=== PATIENT | male | born 1960 | race Caucasian/White ===

== ENCOUNTER 2022-09-12 09:24 | Inpatient (IN) | payer OTHER ==
[2022-09-12] MEDS ORDERED: Ondansetron ODT 4 MG TAB PO PRN (09:50)
[2022-09-12 10:49] VITALS: BMI 27.8
[2022-09-12] MEDS ORDERED: Ventolin HFA Inhaler 60 PUFF INHALER INH PRN (10:51)
[2022-09-12] MEDS: Furosemide 40 MG/4 ML VIAL SLOW IVP SCH (13:12)
[2022-09-12 14:29] LABS: Troponin I 0.021 ng/mL (< 0.028)
[2022-09-12] MEDS: Carvedilol 6.25 MG TAB PO SCH (18:33)
[2022-09-12 20:26] LABS: Troponin I 0.024 ng/mL (< 0.028)
[2022-09-12] MEDS: hydrALAZINE 25 MG TAB PO SCH (21:08)
[2022-09-12] MEDS: Sodium Bicarbonate Tab 325 MG TAB PO SCH (21:08)
[2022-09-12] MEDS: Acetaminophen 325 MG TAB PO PRN (21:09)
[2022-09-13] MEDS: Acetaminophen 325 MG TAB PO PRN ×2 (01:03→20:56)
[2022-09-13] MEDS: Furosemide 40 MG/4 ML VIAL SLOW IVP SCH ×2 (05:11→14:53)
[2022-09-13] MEDS ORDERED: Levothyroxine Sodium 25 MCG TAB PO SCH (06:00)
[2022-09-13] MEDS ORDERED: Levothyroxine Sodium 88 MCG TAB PO SCH (06:00)
[2022-09-13 06:28] LABS: #Basophils 0.1 10x3/uL (0.0-0.2); #Eosinphils 0.3 10x3/uL (0.0-0.5); #Monocytes 0.6 10x3/uL (0.0-1.1); #Neutrophils 4.8 10x3/uL (1.5-8.4); %Basophils 1.8 % (0.0-2.0); %Eosinophils 3.4 % (0.0-6.0); %Lymphocytes 20.6 % (18.0-47.0); %Monocytes 8.6 % (0.0-10.0); %Neutrophils 65.2 % (40.0-75.0); Hemoglobin 10.6 g/dL (13.5-17.5); Mean Corpuscular HGB CONC 30.4 g/dL (32.0-36.0); Mean Corpuscular Hemoglobin 23.9 pg (27.0-33.0); Mean Corpuscular Volume 78.8 fl (81.2-95.1); Mean Platelet Volume 9.1 fl (7.4-10.4); Platelet Count 440 10x3/uL (150-450); RBC Distribution Width 16.3 % (11.5-14.5); Red Blood Cell (RBC) Count 4.43 10x6/uL (4.32-5.72); White Blood Cell (WBC) Count 7.4 10x3/uL (3.5-10.5)
[2022-09-13 06:40] LABS: Anion Gap 15 mmol/L (10-20); BUN (Urea Nitrogen) 34 mg/dL (8.4-25.7); Calc. Creatinine Clearance 60 mL/min (70-130); Calcium 8.8 mg/dL (7.8-10.44); Carbon Dioxide 22 mmol/L (23-31); Chloride 101 mmol/L (98-107); Estimated GFR 46; Glucose 80 mg/dL (80-115); Potassium 4.3 mmol/L (3.5-5.1); Sodium 134 mmol/L (136-145)
[2022-09-13] MEDS: hydrALAZINE 25 MG TAB PO SCH ×2 (08:53→20:55)
[2022-09-13] MEDS: Atorvastatin Calcium 40 MG TAB PO SCH (08:53)
[2022-09-13] MEDS: Sodium Bicarbonate Tab 325 MG TAB PO SCH ×2 (08:53→20:56)
[2022-09-13] MEDS: Lisinopril 10 MG TAB PO SCH (08:53)
[2022-09-13] MEDS: Carvedilol 6.25 MG TAB PO SCH ×2 (08:54→16:28)
[2022-09-13] MEDS: Loratadine 10 MG TAB PO SCH (08:54)
[2022-09-13] MEDS: Empagliflozin 10 MG TAB PO SCH (08:54)
[2022-09-13] MEDS: Clopidogrel Bisulfate 75 MG TAB PO SCH (08:54)
[2022-09-14] MEDS: Levothyroxine Sodium 50 MCG TAB PO SCH (05:22)
[2022-09-14] MEDS: Furosemide 40 MG/4 ML VIAL SLOW IVP SCH ×2 (05:22→15:53)
[2022-09-14 05:58] LABS: #Basophils 0.1 10x3/uL (0.0-0.2); #Eosinphils 0.3 10x3/uL (0.0-0.5); #Monocytes 0.8 10x3/uL (0.0-1.1); #Neutrophils 4.7 10x3/uL (1.5-8.4); %Basophils 1.7 % (0.0-2.0); %Eosinophils 3.6 % (0.0-6.0); %Lymphocytes 20.4 % (18.0-47.0); %Monocytes 10.8 % (0.0-10.0); Hemoglobin 10.5 g/dL (13.5-17.5); Mean Corpuscular HGB CONC 30.3 g/dL (32.0-36.0); Mean Corpuscular Volume 79.2 fl (81.2-95.1); Mean Platelet Volume 9.6 fl (7.4-10.4); Platelet Count 463 10x3/uL (150-450); RBC Distribution Width 16.3 % (11.5-14.5); Red Blood Cell (RBC) Count 4.37 10x6/uL (4.32-5.72); White Blood Cell (WBC) Count 7.5 10x3/uL (3.5-10.5)
[2022-09-14 06:11] LABS: Anion Gap 15 mmol/L (10-20); BUN (Urea Nitrogen) 40 mg/dL (8.4-25.7); Calc. Creatinine Clearance 57 mL/min (70-130); Calcium 8.9 mg/dL (7.8-10.44); Carbon Dioxide 25 mmol/L (23-31); Chloride 99 mmol/L (98-107); Estimated GFR 44; Glucose 78 mg/dL (80-115); Potassium 4.2 mmol/L (3.5-5.1); Sodium 135 mmol/L (136-145)
[2022-09-14] MEDS ORDERED: Senokot S 8.6-50 MG TAB PO SCH (09:00)
[2022-09-14] MEDS ORDERED: Magnesium Citrate 300 ML BOT PO SCH (09:00)
[2022-09-14] MEDS: Empagliflozin 10 MG TAB PO SCH (09:14)
[2022-09-14] MEDS: Atorvastatin Calcium 40 MG TAB PO SCH (09:14)
[2022-09-14] MEDS: Carvedilol 6.25 MG TAB PO SCH ×2 (09:14→18:07)
[2022-09-14] MEDS: hydrALAZINE 25 MG TAB PO SCH ×2 (09:14→21:54)
[2022-09-14] MEDS: Clopidogrel Bisulfate 75 MG TAB PO SCH (09:14)
[2022-09-14] MEDS: Sodium Bicarbonate Tab 325 MG TAB PO SCH ×2 (09:15→21:55)
[2022-09-14] MEDS: Lisinopril 10 MG TAB PO SCH (09:15)
[2022-09-14] MEDS: Loratadine 10 MG TAB PO SCH (09:15)
[2022-09-14] MEDS ORDERED: Carvedilol 6.25 MG TAB ONE (18:07)
[2022-09-14] MEDS: QUEtiapine 25 MG TAB PO SCH (21:55)
[2022-09-14] MEDS: Senokot S 8.6-50 MG TAB PO SCH (21:55)
[2022-09-15 04:57] LABS: #Basophils 0.1 10x3/uL (0.0-0.2); #Eosinphils 0.2 10x3/uL (0.0-0.5); #Monocytes 0.8 10x3/uL (0.0-1.1); #Neutrophils 5.3 10x3/uL (1.5-8.4); %Basophils 1.7 % (0.0-2.0); %Eosinophils 2.3 % (0.0-6.0); %Monocytes 9.7 % (0.0-10.0); %Neutrophils 66.7 % (40.0-75.0); Hemoglobin 10.8 g/dL (13.5-17.5); Mean Corpuscular HGB CONC 30.6 g/dL (32.0-36.0); Mean Corpuscular Hemoglobin 24.1 pg (27.0-33.0); Mean Corpuscular Volume 78.6 fl (81.2-95.1); Mean Platelet Volume 9.5 fl (7.4-10.4); Platelet Count 498 10x3/uL (150-450); RBC Distribution Width 16.3 % (11.5-14.5); Red Blood Cell (RBC) Count 4.49 10x6/uL (4.32-5.72); White Blood Cell (WBC) Count 7.9 10x3/uL (3.5-10.5)
[2022-09-15 05:09] LABS: Anion Gap 15 mmol/L (10-20); BUN (Urea Nitrogen) 43 mg/dL (8.4-25.7); Calc. Creatinine Clearance 59 mL/min (70-130); Carbon Dioxide 25 mmol/L (23-31); Chloride 98 mmol/L (98-107); Estimated GFR 45; Glucose 97 mg/dL (80-115); Potassium 3.9 mmol/L (3.5-5.1); Sodium 134 mmol/L (136-145)
[2022-09-15] MEDS: Furosemide 40 MG/4 ML VIAL SLOW IVP SCH ×2 (06:35→15:08)
[2022-09-15] MEDS: Levothyroxine Sodium 50 MCG TAB PO SCH (06:35)
[2022-09-15] MEDS: Acetaminophen 325 MG TAB PO PRN ×2 (08:27→15:08)
[2022-09-15] MEDS: Sodium Bicarbonate Tab 325 MG TAB PO SCH ×2 (08:28→21:41)
[2022-09-15] MEDS: Empagliflozin 10 MG TAB PO SCH (08:28)
[2022-09-15] MEDS: Lisinopril 10 MG TAB PO SCH (08:28)
[2022-09-15] MEDS: Senokot S 8.6-50 MG TAB PO SCH ×2 (08:28→21:41)
[2022-09-15] MEDS: hydrALAZINE 25 MG TAB PO SCH ×2 (08:29→21:42)
[2022-09-15] MEDS: Carvedilol 6.25 MG TAB PO SCH ×2 (08:29→16:02)
[2022-09-15] MEDS: Loratadine 10 MG TAB PO SCH (08:30)
[2022-09-15] MEDS: Clopidogrel Bisulfate 75 MG TAB PO SCH (08:30)
[2022-09-15] MEDS: Atorvastatin Calcium 40 MG TAB PO SCH (08:30)
[2022-09-15] MEDS: Isosorbide Dinitrate 10 MG TAB PO SCH ×2 (09:02→21:41)
[2022-09-15] MEDS: QUEtiapine 25 MG TAB PO SCH (21:45)
[2022-09-16 04:16] LABS: #Basophils 0.2 10x3/uL (0.0-0.2); #Eosinphils 0.2 10x3/uL (0.0-0.5); #Monocytes 0.8 10x3/uL (0.0-1.1); #Neutrophils 4.8 10x3/uL (1.5-8.4); %Basophils 1.9 % (0.0-2.0); %Eosinophils 2.6 % (0.0-6.0); %Monocytes 10.6 % (0.0-10.0); %Neutrophils 60.4 % (40.0-75.0); Mean Corpuscular HGB CONC 30.8 g/dL (32.0-36.0); Mean Corpuscular Hemoglobin 24.1 pg (27.0-33.0); Mean Corpuscular Volume 78.3 fl (81.2-95.1); Mean Platelet Volume 9.1 fl (7.4-10.4); Platelet Count 509 10x3/uL (150-450); RBC Distribution Width 16.7 % (11.5-14.5); Red Blood Cell (RBC) Count 4.56 10x6/uL (4.32-5.72); White Blood Cell (WBC) Count 7.9 10x3/uL (3.5-10.5)
[2022-09-16 04:29] LABS: Anion Gap 12 mmol/L (10-20); BUN (Urea Nitrogen) 50 mg/dL (8.4-25.7); Calc. Creatinine Clearance 53 mL/min (70-130); Calcium 9.2 mg/dL (7.8-10.44); Carbon Dioxide 28 mmol/L (23-31); Chloride 98 mmol/L (98-107); Estimated GFR 40; Glucose 79 mg/dL (80-115); Potassium 4.6 mmol/L (3.5-5.1); Sodium 133 mmol/L (136-145)
[2022-09-16] MEDS: Levothyroxine Sodium 88 MCG TAB PO SCH (06:24)
[2022-09-16] MEDS: Furosemide 40 MG/4 ML VIAL SLOW IVP SCH ×2 (06:24→13:57)
[2022-09-16] MEDS ORDERED: Carvedilol 12.5 MG TAB PO SCH ×2 (08:30→17:00)
[2022-09-16] MEDS: Carvedilol 6.25 MG TAB PO SCH (09:11)
[2022-09-16] MEDS: Clopidogrel Bisulfate 75 MG TAB PO SCH (13:55)
[2022-09-16] MEDS: Atorvastatin Calcium 40 MG TAB PO SCH (13:55)
[2022-09-16] MEDS: Isosorbide Dinitrate 10 MG TAB PO SCH ×2 (13:56→20:18)
[2022-09-16] MEDS: hydrALAZINE 25 MG TAB PO SCH ×2 (13:56→20:18)
[2022-09-16] MEDS: Empagliflozin 10 MG TAB PO SCH (13:56)
[2022-09-16] MEDS: Loratadine 10 MG TAB PO SCH (13:57)
[2022-09-16] MEDS: Lisinopril 10 MG TAB PO SCH (13:57)
[2022-09-16] MEDS: Senokot S 8.6-50 MG TAB PO SCH ×2 (13:57→20:18)
[2022-09-16] MEDS: Sodium Bicarbonate Tab 325 MG TAB PO SCH ×2 (13:58→20:18)
[2022-09-16] MEDS: QUEtiapine 25 MG TAB PO SCH (20:19)
[2022-09-17 00:33] LABS: Hemoglobin 11.1 g/dL (13.5-17.5); Platelet Count 488 10x3/uL (150-450)
[2022-09-17] MEDS: Heparin 10,000 UNITS/ 10 ML VIAL SLOW IVP SCH ×4 (01:07→23:42)
[2022-09-17] MEDS: Heparin 25,000 units/D5W 500 ML IVPB SCH ×2 (01:08→23:55)
[2022-09-17 03:48] LABS: #Basophils 0.1 10x3/uL (0.0-0.2); #Eosinphils 0.2 10x3/uL (0.0-0.5); #Monocytes 0.8 10x3/uL (0.0-1.1); #Neutrophils 5.4 10x3/uL (1.5-8.4); %Basophils 1.4 % (0.0-2.0); %Eosinophils 2.7 % (0.0-6.0); %Lymphocytes 22.8 % (18.0-47.0); %Monocytes 9.1 % (0.0-10.0); %Neutrophils 63.3 % (40.0-75.0); Hemoglobin 10.9 g/dL (13.5-17.5); Mean Corpuscular HGB CONC 30.1 g/dL (32.0-36.0); Mean Corpuscular Hemoglobin 24.2 pg (27.0-33.0); Mean Corpuscular Volume 80.3 fl (81.2-95.1); Mean Platelet Volume 9.3 fl (7.4-10.4); Platelet Count 491 10x3/uL (150-450); RBC Distribution Width 16.6 % (11.5-14.5); Red Blood Cell (RBC) Count 4.51 10x6/uL (4.32-5.72); White Blood Cell (WBC) Count 8.6 10x3/uL (3.5-10.5)
[2022-09-17 03:55] LABS: Anion Gap 13 mmol/L (10-20); BUN (Urea Nitrogen) 57 mg/dL (8.4-25.7); Calc. Creatinine Clearance 40 mL/min (70-130); Calcium 9.3 mg/dL (7.8-10.44); Carbon Dioxide 25 mmol/L (23-31); Chloride 100 mmol/L (98-107); Estimated GFR 32; Glucose 91 mg/dL (80-115); Potassium 4.4 mmol/L (3.5-5.1); Sodium 134 mmol/L (136-145)
[2022-09-17] MEDS: Furosemide 40 MG/4 ML VIAL SLOW IVP SCH (05:26)
[2022-09-17] MEDS: Levothyroxine Sodium 88 MCG TAB PO SCH (05:26)
[2022-09-17] MEDS: Famotidine 20 MG TAB PO SCH (09:02)
[2022-09-17] MEDS: Senokot S 8.6-50 MG TAB PO SCH ×2 (09:02→20:29)
[2022-09-17] MEDS: Loratadine 10 MG TAB PO SCH (09:02)
[2022-09-17] MEDS: hydrALAZINE 25 MG TAB PO SCH ×2 (09:02→20:28)
[2022-09-17] MEDS: Carvedilol 6.25 MG TAB PO SCH ×2 (09:03→17:09)
[2022-09-17] MEDS: Isosorbide Dinitrate 10 MG TAB PO SCH ×2 (09:03→20:29)
[2022-09-17] MEDS: Furosemide 40 MG TAB PO SCH ×2 (09:03→15:38)
[2022-09-17] MEDS: Empagliflozin 10 MG TAB PO SCH (09:03)
[2022-09-17] MEDS: Clopidogrel Bisulfate 75 MG TAB PO SCH (09:03)
[2022-09-17] MEDS: Atorvastatin Calcium 40 MG TAB PO SCH (09:03)
[2022-09-17] MEDS: Lisinopril 10 MG TAB PO SCH (09:03)
[2022-09-17] MEDS: Sodium Bicarbonate Tab 325 MG TAB PO SCH ×2 (09:03→20:29)
[2022-09-17] MEDS: QUEtiapine 25 MG TAB PO SCH (20:28)
[2022-09-18] MEDS: Levothyroxine Sodium 88 MCG TAB PO SCH (05:07)
[2022-09-18 05:18] LABS: Anion Gap 14 mmol/L (10-20); BUN (Urea Nitrogen) 51 mg/dL (8.4-25.7); Calc. Creatinine Clearance 47 mL/min (70-130); Calcium 9.7 mg/dL (7.8-10.44); Carbon Dioxide 27 mmol/L (23-31); Chloride 99 mmol/L (98-107); Estimated GFR 39; Glucose 89 mg/dL (80-115); Sodium 135 mmol/L (136-145)
[2022-09-18] MEDS ORDERED: Apixaban 5 MG TAB PO SCH ×3 (09:00→21:00)
[2022-09-18] MEDS: Carvedilol 6.25 MG TAB PO SCH ×2 (09:43→17:27)
[2022-09-18] MEDS: Atorvastatin Calcium 40 MG TAB PO SCH (09:43)
[2022-09-18] MEDS: hydrALAZINE 25 MG TAB PO SCH (09:43)
[2022-09-18] MEDS: Clopidogrel Bisulfate 75 MG TAB PO SCH (09:44)
[2022-09-18] MEDS: Isosorbide Dinitrate 10 MG TAB PO SCH (09:44)
[2022-09-18] MEDS: Loratadine 10 MG TAB PO SCH (09:44)
[2022-09-18] MEDS: Lisinopril 10 MG TAB PO SCH (09:44)
[2022-09-18] MEDS: Senokot S 8.6-50 MG TAB PO SCH (09:45)
[2022-09-18] MEDS: Furosemide 40 MG TAB PO SCH ×2 (09:45→13:46)
[2022-09-18] MEDS: Famotidine 20 MG TAB PO SCH (09:45)
[2022-09-18] MEDS: Sodium Bicarbonate Tab 325 MG TAB PO SCH (09:45)
[2022-09-18] MEDS: Empagliflozin 10 MG TAB PO SCH (11:55)
[2022-09-18 12:32] VITALS: TEMP 98.2
[2022-09-18 13:50] VITALS: BP 106/65
[2022-09-25] MEDS ORDERED: Apixaban 5 MG TAB PO SCH (09:00)
== END 2022-09-18 17:30 | DRG 291 ==
LOC: CSHTELE 09:24 → EEVIPCON 09:24
PROVIDERS: ADMIT Family Medicine; ATTEND Family Medicine
DX: I13.0 Hypertensive heart and chronic kidney disease with heart failure and stage 1 through stage 4 chronic kidney disease, or unspecified chronic kidney disease (principal); I50.43 Acute on chronic combined systolic (congestive) and diastolic (congestive) heart failure; N17.9 Acute kidney failure, unspecified; I74.3 Embolism and thrombosis of arteries of the lower extremities; I72.4 Aneurysm of artery of lower extremity; I25.10 Atherosclerotic heart disease of native coronary artery without angina pectoris; E03.9 Hypothyroidism, unspecified; G47.33 Obstructive sleep apnea (adult) (pediatric); N18.30 Chronic kidney disease, stage 3 unspecified; D63.1 Anemia in chronic kidney disease; M94.0 Chondrocostal junction syndrome [Tietze]; Z88.8 Allergy status to other drugs, medicaments and biological substances; Z79.899 Other long term (current) drug therapy; Z79.51 Long term (current) use of inhaled steroids; Z79.82 Long term (current) use of aspirin; Z95.1 Presence of aortocoronary bypass graft; Z85.46 Personal history of malignant neoplasm of prostate; Z91.018 Allergy to other foods
CPT/HCPCS: 36415; 80048; 84443; 85025; 85730; 93306; 93923; 94760; J1644; J1650; J1940

== ENCOUNTER 2022-11-07 07:44 | Inpatient (IN) | payer OTHER ==
[2022-11-07 08:42] LABS: Carbon Dioxide 18 mmol/L (23-31); Chloride 102 mmol/L (98-107); Potassium 4.3 mmol/L (3.5-5.1); Sodium 133 mmol/L (136-145)
[2022-11-07 08:43] LABS: Anion Gap 17 mmol/L (10-20); BUN (Urea Nitrogen) 23 mg/dL (8.4-25.7); Bilirubin, Total 1.5 mg/dL (0.2-1.2); Calc. Creatinine Clearance 0 mL/min (70-130); Calcium 8.6 mg/dL (7.6-10.4); Estimated GFR 47; Glucose 96 mg/dL (80-115)
[2022-11-07 08:44] LABS: ALT (SGPT) 8 U/L (8-55); AST (SGOT) 17 U/L (5-34); Albumin 3.4 g/dL (3.4-4.8); Alkaline Phosphatase 134 U/L (40-110); Globulin 3.9 g/dL (2.4-3.5); Lipase 73 U/L (8-78); Magnesium 1.9 mg/dL (1.6-2.6); Protein, Total 7.3 g/dL (5.8-8.1)
[2022-11-07 08:45] LABS: Troponin I 0.019 ng/mL (< 0.028)
[2022-11-07 08:50] LABS: #Basophils 0.2 10x3/uL (0.0-0.2); #Eosinphils 0.2 10x3/uL (0.0-0.5); #Monocytes 0.9 10x3/uL (0.0-1.1); #Neutrophils 6.7 10x3/uL (1.5-8.4); %Eosinophils 1.6 % (0.0-6.0); %Lymphocytes 15.6 % (18.0-47.0); %Monocytes 9.4 % (0.0-10.0); %Neutrophils 70.8 % (40.0-75.0); Hematocrit 36.7 % (38.8-50.0); Hemoglobin 11.2 g/dL (13.5-17.5); Mean Corpuscular HGB CONC 30.5 g/dL (32.0-36.0); Mean Corpuscular Hemoglobin 24.8 pg (27.0-33.0); Mean Corpuscular Volume 81.4 fl (81.2-95.1); Mean Platelet Volume 9.9 fl (7.4-10.4); Platelet Count 331 10x3/uL (150-450); RBC Distribution Width 20.1 % (11.5-14.5); Red Blood Cell (RBC) Count 4.51 10x6/uL (4.32-5.72); White Blood Cell (WBC) Count 9.5 10x3/uL (3.5-10.5)
[2022-11-07 09:40] LABS: SARS-CoV-2 NAA Rapid Test Not Detected (NotDetected)
[2022-11-07] MEDS ORDERED: Furosemide 40 MG/4 ML VIAL ONE (09:58)
[2022-11-07] MEDS ORDERED: Nitroglycerin 0.4 MG TAB (25 Tab Bottle) SL PRN (12:16)
[2022-11-07] MEDS ORDERED: Acetaminophen 325 MG TAB PO PRN (12:18)
[2022-11-07] MEDS ORDERED: Ondansetron PF 4 MG/2 ML Vial IVP PRN (12:18)
[2022-11-07] MEDS ORDERED: Nitroglycerin 2% Ointment 1 INCH/1 GM Packet ONE (12:23)
[2022-11-07 12:57] LABS: Troponin I 0.022 ng/mL (< 0.028)
[2022-11-07] MEDS: Carvedilol 6.25 MG TAB PO SCH (16:12)
[2022-11-07] MEDS: Furosemide 40 MG/4 ML VIAL SLOW IVP SCH (16:13)
[2022-11-07 16:18] LABS: Troponin I 0.022 ng/mL (< 0.028)
[2022-11-07] MEDS: Isosorbide Dinitrate 10 MG TAB PO SCH (21:27)
[2022-11-07] MEDS: hydrALAZINE 25 MG TAB PO SCH (21:27)
[2022-11-07] MEDS: QUEtiapine 25 MG TAB PO SCH (21:28)
[2022-11-07] MEDS: Sodium Bicarbonate Tab 325 MG TAB PO SCH (21:28)
[2022-11-08] MEDS: Levothyroxine Sodium 25 MCG TAB PO SCH (05:43)
[2022-11-08] MEDS: Furosemide 40 MG/4 ML VIAL SLOW IVP SCH ×2 (05:44→13:02)
[2022-11-08 05:50] VITALS: BMI 25.4
[2022-11-08 06:01] LABS: #Basophils 0.2 10x3/uL (0.0-0.2); #Eosinphils 0.4 10x3/uL (0.0-0.5); #Neutrophils 7.2 10x3/uL (1.5-8.4); %Basophils 1.6 % (0.0-2.0); %Eosinophils 3.8 % (0.0-6.0); %Lymphocytes 14.9 % (18.0-47.0); %Monocytes 9.2 % (0.0-10.0); %Neutrophils 69.7 % (40.0-75.0); Hematocrit 33.7 % (38.8-50.0); Hemoglobin 10.4 g/dL (13.5-17.5); Mean Corpuscular HGB CONC 30.9 g/dL (32.0-36.0); Mean Corpuscular Hemoglobin 25.1 pg (27.0-33.0); Mean Corpuscular Volume 81.4 fl (81.2-95.1); Mean Platelet Volume 9.6 fl (7.4-10.4); Platelet Count 334 10x3/uL (150-450); RBC Distribution Width 19.9 % (11.5-14.5); Red Blood Cell (RBC) Count 4.14 10x6/uL (4.32-5.72); White Blood Cell (WBC) Count 10.3 10x3/uL (3.5-10.5)
[2022-11-08 06:20] LABS: Anion Gap 18 mmol/L (10-20); BUN (Urea Nitrogen) 29 mg/dL (8.4-25.7); Calc. Creatinine Clearance 53 mL/min (70-130); Calcium 8.3 mg/dL (7.8-10.44); Carbon Dioxide 19 mmol/L (23-31); Chloride 102 mmol/L (98-107); Estimated GFR 44; Glucose 79 mg/dL (80-115); Potassium 3.7 mmol/L (3.5-5.1); Sodium 135 mmol/L (136-145)
[2022-11-08] MEDS: Loratadine 10 MG TAB PO SCH (08:21)
[2022-11-08] MEDS: Isosorbide Dinitrate 10 MG TAB PO SCH (08:21)
[2022-11-08] MEDS: Spironolactone 25 MG TAB PO SCH (08:21)
[2022-11-08] MEDS: Clopidogrel Bisulfate 75 MG TAB PO SCH (08:21)
[2022-11-08] MEDS: hydrALAZINE 25 MG TAB PO SCH (08:21)
[2022-11-08] MEDS: Carvedilol 6.25 MG TAB PO SCH ×2 (08:22→17:01)
[2022-11-08] MEDS: Famotidine 20 MG TAB PO SCH (08:22)
[2022-11-08] MEDS: Sodium Bicarbonate Tab 325 MG TAB PO SCH ×2 (08:22→20:30)
[2022-11-08] MEDS: Atorvastatin Calcium 40 MG TAB PO SCH (08:22)
[2022-11-08] MEDS: Empagliflozin 10 MG TAB PO SCH (08:23)
[2022-11-08] MEDS: QUEtiapine 25 MG TAB PO SCH (20:31)
[2022-11-09] MEDS: Levothyroxine Sodium 25 MCG TAB PO SCH (05:40)
[2022-11-09] MEDS: Furosemide 40 MG/4 ML VIAL SLOW IVP SCH ×2 (05:40→14:25)
[2022-11-09] MEDS: Carvedilol 6.25 MG TAB PO SCH ×2 (08:45→17:41)
[2022-11-09] MEDS: Clopidogrel Bisulfate 75 MG TAB PO SCH (08:46)
[2022-11-09] MEDS: Atorvastatin Calcium 40 MG TAB PO SCH (08:46)
[2022-11-09] MEDS: Loratadine 10 MG TAB PO SCH (08:46)
[2022-11-09] MEDS: Famotidine 20 MG TAB PO SCH (08:46)
[2022-11-09] MEDS: Sodium Bicarbonate Tab 325 MG TAB PO SCH ×2 (08:46→21:14)
[2022-11-09] MEDS: Spironolactone 25 MG TAB PO SCH (08:46)
[2022-11-09] MEDS: Empagliflozin 10 MG TAB PO SCH (14:25)
[2022-11-09] MEDS: QUEtiapine 25 MG TAB PO SCH (21:14)
[2022-11-10] MEDS: Furosemide 40 MG/4 ML VIAL SLOW IVP SCH ×2 (06:01→13:35)
[2022-11-10] MEDS: Levothyroxine Sodium 25 MCG TAB PO SCH (06:01)
[2022-11-10] MEDS: Clopidogrel Bisulfate 75 MG TAB PO SCH (10:04)
[2022-11-10] MEDS: Empagliflozin 10 MG TAB PO SCH ×2 (10:04→10:08)
[2022-11-10] MEDS: Atorvastatin Calcium 40 MG TAB PO SCH (10:04)
[2022-11-10] MEDS: Spironolactone 25 MG TAB PO SCH (10:05)
[2022-11-10] MEDS: Sodium Bicarbonate Tab 325 MG TAB PO SCH ×2 (10:05→20:21)
[2022-11-10] MEDS: Carvedilol 6.25 MG TAB PO SCH ×2 (10:05→16:51)
[2022-11-10] MEDS: Loratadine 10 MG TAB PO SCH (10:05)
[2022-11-10] MEDS: Famotidine 20 MG TAB PO SCH (10:05)
[2022-11-10 13:05] LABS: Anion Gap 14 mmol/L (10-20); BUN (Urea Nitrogen) 32 mg/dL (8.4-25.7); Calc. Creatinine Clearance 61 mL/min (70-130); Calcium 8.8 mg/dL (7.8-10.44); Carbon Dioxide 27 mmol/L (23-31); Chloride 94 mmol/L (98-107); Estimated GFR 52; Glucose 87 mg/dL (80-115); Potassium 3.8 mmol/L (3.5-5.1); Sodium 131 mmol/L (136-145)
[2022-11-10] MEDS: QUEtiapine 25 MG TAB PO SCH (20:22)
[2022-11-11 06:16] LABS: #Basophils 0.1 10x3/uL (0.0-0.2); #Eosinphils 0.5 10x3/uL (0.0-0.5); #Monocytes 0.7 10x3/uL (0.0-1.1); #Neutrophils 4.5 10x3/uL (1.5-8.4); %Basophils 1.7 % (0.0-2.0); %Eosinophils 6.6 % (0.0-6.0); %Monocytes 9.9 % (0.0-10.0); Hematocrit 37.4 % (38.8-50.0); Hemoglobin 11.4 g/dL (13.5-17.5); Mean Corpuscular HGB CONC 30.5 g/dL (32.0-36.0); Mean Platelet Volume 9.3 fl (7.4-10.4); Platelet Count 407 10x3/uL (150-450); RBC Distribution Width 20.2 % (11.5-14.5); Red Blood Cell (RBC) Count 4.56 10x6/uL (4.32-5.72); White Blood Cell (WBC) Count 7.2 10x3/uL (3.5-10.5)
[2022-11-11] MEDS: Levothyroxine Sodium 25 MCG TAB PO SCH (06:17)
[2022-11-11] MEDS: Furosemide 40 MG/4 ML VIAL SLOW IVP SCH ×2 (06:17→14:05)
[2022-11-11 06:34] LABS: Anion Gap 15 mmol/L (10-20); BUN (Urea Nitrogen) 32 mg/dL (8.4-25.7); Calc. Creatinine Clearance 57 mL/min (70-130); Calcium 8.7 mg/dL (7.8-10.44); Carbon Dioxide 27 mmol/L (23-31); Chloride 95 mmol/L (98-107); Estimated GFR 48; Glucose 83 mg/dL (80-115); Potassium 3.8 mmol/L (3.5-5.1); Sodium 133 mmol/L (136-145)
[2022-11-11] MEDS: Carvedilol 6.25 MG TAB PO SCH ×2 (09:49→16:19)
[2022-11-11] MEDS: Clopidogrel Bisulfate 75 MG TAB PO SCH (09:49)
[2022-11-11] MEDS: Famotidine 20 MG TAB PO SCH (09:49)
[2022-11-11] MEDS: Spironolactone 25 MG TAB PO SCH (09:49)
[2022-11-11] MEDS: Atorvastatin Calcium 40 MG TAB PO SCH (09:49)
[2022-11-11] MEDS: Sodium Bicarbonate Tab 325 MG TAB PO SCH ×2 (09:49→21:06)
[2022-11-11] MEDS: Empagliflozin 10 MG TAB PO SCH (09:49)
[2022-11-11] MEDS: Loratadine 10 MG TAB PO SCH (09:50)
[2022-11-11] MEDS: QUEtiapine 25 MG TAB PO SCH (21:06)
[2022-11-12 04:03] LABS: #Basophils 0.1 10x3/uL (0.0-0.2); #Eosinphils 0.5 10x3/uL (0.0-0.5); #Neutrophils 5.7 10x3/uL (1.5-8.4); %Basophils 1.4 % (0.0-2.0); %Eosinophils 5.5 % (0.0-6.0); %Lymphocytes 19.8 % (18.0-47.0); %Monocytes 10.6 % (0.0-10.0); %Neutrophils 62.3 % (40.0-75.0); Hematocrit 35.2 % (38.8-50.0); Hemoglobin 10.9 g/dL (13.5-17.5); Mean Corpuscular Hemoglobin 25.3 pg (27.0-33.0); Mean Corpuscular Volume 81.7 fl (81.2-95.1); Mean Platelet Volume 9.2 fl (7.4-10.4); Platelet Count 422 10x3/uL (150-450); RBC Distribution Width 19.5 % (11.5-14.5); Red Blood Cell (RBC) Count 4.31 10x6/uL (4.32-5.72); White Blood Cell (WBC) Count 9.1 10x3/uL (3.5-10.5)
[2022-11-12 04:32] LABS: Anion Gap 15 mmol/L (10-20); BUN (Urea Nitrogen) 43 mg/dL (8.4-25.7); Calc. Creatinine Clearance 47 mL/min (70-130); Calcium 8.8 mg/dL (7.8-10.44); Carbon Dioxide 26 mmol/L (23-31); Chloride 95 mmol/L (98-107); Estimated GFR 39; Glucose 91 mg/dL (80-115); Magnesium 1.9 mg/dL (1.6-2.6); Potassium 3.7 mmol/L (3.5-5.1); Sodium 132 mmol/L (136-145)
[2022-11-12] MEDS: Levothyroxine Sodium 25 MCG TAB PO SCH (05:36)
[2022-11-12] MEDS: Furosemide 40 MG/4 ML VIAL SLOW IVP SCH (05:36)
[2022-11-12] MEDS: Spironolactone 25 MG TAB PO SCH (09:16)
[2022-11-12] MEDS: Atorvastatin Calcium 40 MG TAB PO SCH (09:16)
[2022-11-12] MEDS: Sodium Bicarbonate Tab 325 MG TAB PO SCH (09:17)
[2022-11-12] MEDS: Carvedilol 6.25 MG TAB PO SCH (09:17)
[2022-11-12] MEDS: Clopidogrel Bisulfate 75 MG TAB PO SCH (09:17)
[2022-11-12] MEDS: Famotidine 20 MG TAB PO SCH (09:17)
[2022-11-12] MEDS: Loratadine 10 MG TAB PO SCH (09:18)
[2022-11-12] MEDS: Empagliflozin 10 MG TAB PO SCH (09:18)
[2022-11-12 13:33] VITALS: BP 108/68; TEMP 97.4
== END 2022-11-12 16:53 | DRG 291 ==
LOC: CSHERS 07:44 → EEVIPCON 12:01 → CSHTELE 12:01 → OBSVTOIN 11-09 13:23
PROVIDERS: ADMIT Family Medicine; ATTEND Internal Medicine
DX: I13.0 Hypertensive heart and chronic kidney disease with heart failure and stage 1 through stage 4 chronic kidney disease, or unspecified chronic kidney disease (principal); I50.23 Acute on chronic systolic (congestive) heart failure; J96.01 Acute respiratory failure with hypoxia; I74.3 Embolism and thrombosis of arteries of the lower extremities; I25.10 Atherosclerotic heart disease of native coronary artery without angina pectoris; E03.9 Hypothyroidism, unspecified; C61 Malignant neoplasm of prostate; N18.30 Chronic kidney disease, stage 3 unspecified; Z20.822 Contact with and (suspected) exposure to COVID-19; I25.5 Ischemic cardiomyopathy; Z95.1 Presence of aortocoronary bypass graft; Z90.49 Acquired absence of other specified parts of digestive tract; Z91.018 Allergy to other foods; Z79.899 Other long term (current) drug therapy
CPT/HCPCS: 36415; 36416; 71045; 80048; 80053; 83690; 83735; 83880; 84484; 85025; 93005; 93010; 93923; 94760; 94762; 96374; J1650; J1940; U0002